=== PATIENT | female | born 1935 | race Caucasian/White ===

== ENCOUNTER 2018-03-28 08:05 | Inpatient (IN) ==
--- NOTE | 2018-03-28 08:08 | Emergency Department Note ---
Disposition Clinical Impression: Community acquired pneumonia, Sepsis Disposition: Admitted As Inpatient Condition: Fair Referrals: Dwayne Cho MD [Primary Care Provider] - Forms: ED Satisfaction Letter Time of Disposition: 10:26 SOB HPI - General Chief Complaint: ED Shortness of Breath/Dyspnea Stated Complaint: Shortness of Breath Time Seen by Provider: 03/28/18 08:05 Source: patient Mode of arrival: ambulatory Limitations: no limitations Nursing Notes Reviewed: Yes Vital Signs Reviewed: Yes - History of Present Illness Increasing shortness of breath over the past couple days cough congestion fever chills denies any aches thinks it may be she is in congestive heart failure she's never been diagnosed with COPD she's been bringing up yellow-green phlegm she denies any blurred vision double vision has dyspnea with activity she denies any recent weight gain or weight loss she denies any numbness tingling weakness or any syncope she denies any abdominal pain or discomfort nurse's notes have been reviewed with further review systems is she's had fever chills cough congestion runny nose phlegm production she's had increasing shortness of breath with activity she denies though did calf pain swelling edema noted rash lesions radiation up into the neck or to the jaw nausea vomiting or diarrhea all systems have been reviewed and are otherwise negative Pt Subjective Complaint: shortness of breath Onset (ago): day(s) Context: recent illness Severity: moderate Consistency/Duration: constant, gradually worsening Improves with: oxygen Worsens with: exertion, movement, coughing Known history of: congestive heart failure Associated symptoms: Reports: chest pain, pain with inspiration, fever, cough, wheezing, sputum production. Denies: orthopnea, lower extremity pain, polyuria, polydipsia, parasthesias, palpitations, hemoptysis, diaphoresis, nausea/vomiting, syncope, abdominal pain, rash, sense of impending doom Treatment prior to arrival: none Cough present: Yes Cough Description: Involuntary, Weak Cough Frequency: Intermittent Sputum production: Yes Sputum Amount: Small Sputum Color: Yellow, Green - Related Data Home Medications Medication Instructions Recorded Confirmed Dexlansoprazole [Dexilant] 60 mg PO DAILY 07/11/15 03/28/18 FLUoxetine HCl [Prozac] 40 mg PO DAILY 07/11/15 03/28/18 Gabapentin [Neurontin] 300 mg PO TID 07/11/15 03/28/18 Levothyroxine [Synthroid] 50 mcg PO 0630 07/11/15 03/28/18 Oxycodone HCl/Acetaminophen 1 each PO Q6H PRN 07/11/15 03/28/18 [Endocet 10-325 mg Tablet] Sucralfate [Carafate] 1 gm PO DAILY 07/11/15 03/28/18 metFORMIN [Glucophage] 500 mg PO DAILY 07/11/15 03/28/18 Atorvastatin [Lipitor] 80 mg PO HS 02/10/17 12/14/17 Clopidogrel [Plavix] 75 mg PO DAILY 02/10/17 03/28/18 Furosemide [Lasix] 40 mg PO DAILY 02/10/17 03/28/18 LORazepam [Ativan] 0.5 mg PO BID 02/10/17 03/28/18 Loratadine [Allergy Relief] 10 mg PO DAILY 12/14/17 03/28/18 Meclizine [Antivert] 12.5 mg PO BID 03/28/18 03/28/18 Metoprolol Succinate [Toprol Xl] 25 mg PO DAILY 03/28/18 03/28/18 Propranolol [Inderal] 20 mg PO DAILY 03/28/18 03/28/18 Spironolactone [Aldactone] 12.5 mg PO DAILY 03/28/18 03/28/18 Allergies Allergy/AdvReac Type Severity Reaction Status Date / Time Influenza Virus Vaccines Allergy Rash Verified 04/17/16 09:41 aspirin [ASA] AdvReac See Verified 04/17/16 09:19 Comments All systems ED: reviewed and negative except as stated. Review of Systems: As Per HPI Constitutional: Denies: fever, chills, weakness Eyes: Denies: eye pain, eye discharge ENT ED: Denies: ear pain, throat pain Cardiovascular: Denies: chest pain, palpitations, dyspnea on exertion Respiratory: Reports: cough, dyspnea, wheezes, sputum production Gastrointestinal: Denies: abdominal pain, nausea, vomiting Genitourinary: Denies: urgency, dysuria, frequency Musculoskeletal: Denies: back pain, neck pain Integumentary: Denies: abrasion Neurological: Denies: headache Psychiatric: Denies: anxiety Endocrine: Denies: fatigue Hematological/Lymphatic: Denies: easy bleeding Allergic/Immunologic: Denies: facial swelling Past Medical History - Past Medical History Attestation: Yes The following information was validated with the patient. Source: patient, old records reviewed, nursing notes reviewed Medical history: Reports: arthritis, asthma, COPD, coronary artery disease, myocardial infarction, thyroid disease, other Psychiatric history: Reports: anxiety, depression AIR TWISTER WINDER history: Reports: no AIR TWISTER WINDER history - Social History Smoking Status: Never smoker Smokeless Tobacco Status: No Alcohol use: Reports: none Drug use: Reports: none Physical Exam - General Limitations: no limitations General appearance: alert, in no apparent distress, anxious - Head Head exam: atraumatic, normocephalic, normal inspection - Eye Eye exam: Present: normal appearance, PERRL, EOMI - ENT ENT exam: normal exam, normal oropharynx, mucous membranes moist, TM's normal bilaterally, normal external ear exam, other (Heavy postnasal drip) - Neck Neck exam: Present: normal inspection, full ROM, trachea midline - Chest Chest inspection: Present: normal inspection, symmetric chest wall rise - Respiratory Respiratory exam: Present: respiratory distress (Mild), wheezes, prolonged expiratory phase - Cardiovascular Cardiovascular exam: Present: regular rate, normal rhythm, normal heart sounds - Abdominal Exam Abdominal exam: Present: soft, Non-Tender, normal bowel sounds. Absent: mass, pulsatile mass - Expanded Upper Extremity Exam Shoulder exam: Present: normal inspection, full ROM Arm exam: Present: normal inspection, full ROM Elbow exam: Present: normal inspection, full ROM Forearm/Wrist exam: Present: normal inspection, full ROM Hand exam: Present: normal inspection, full ROM Vascular exam: Normal: capillary refill, radial pulse - Expanded Lower Extremity Exam Hip/Pelvis exam: Present: normal inspection, full ROM Upper leg exam: Present: normal inspection, full ROM Knee exam: Present: normal inspection, full ROM Lower leg exam: Present: normal inspection, full ROM Ankle exam: Present: normal inspection, full ROM Foot/toe exam: Present: normal inspection, full ROM Neurovascular/Tendon exam: Present: normal capillary refill, normal fine/light touch. Absent: motor deficit, sensory deficit, tendon deficit Gait: observed and normal - Back Exam Back exam: Present: normal inspection, full ROM. Absent: tenderness, muscle spasm - Neurological Exam Neurological exam: Present: alert, oriented X3, CN II-XII intact, normal gait - Psychiatric Psychiatric exam: Present: normal affect, normal mood - Skin Skin exam: Present: warm, dry, intact, normal color Course Course Narrative: Patient seen and evaluated patient was immediately given an aerosol treatment 2 which actually did improve her respiratory rate and maintained her sats on 2 L to 3 L of oxygen at 92 percent up from the 80% she was when she presented here and worsen blood pressure has dropped a little bit less now meeting criteria for sepsis and patient was given fluid boluses based upon that which developed at approximately 10:00 as result of the patient was admitted services Dr. Zavala transferred to [facility] with underlying sepsis disorder patient though is not in septic shock at this time Vital Signs Temperature 99.9 F H 03/28/18 08:06 Pulse Rate 109 03/28/18 08:06 Respiratory Rate 36 03/28/18 08:06 Blood Pressure 163/100 03/28/18 08:06 O2 Sat by Pulse Oximetry 77 03/28/18 08:06 Temperature 99.9 F H 03/28/18 08:06 Pulse Rate 87 03/28/18 09:59 Respiratory Rate 18 03/28/18 09:59 Blood Pressure 98/64 03/28/18 09:59 O2 Sat by Pulse Oximetry 92 03/28/18 09:59 Oxygen Delivery Oxygen Delivery Room Air Shortness of Breath/Dyspnea - Differential Diagnosis Likely: congestive heart failure, pneumonia - Medical Records Medical records reviewed: Yes I reviewed the patient's medical records. - Lab Data Lab results reviewed: Yes I reviewed the patient's lab results. Result diagrams: 03/28/18 08:23 03/28/18 08:23 Lab Results 03/28/18 03/28/18 03/28/18 Range/Units 08:23 08:23 08:23 WBC 14.4 H (4.3-11.1) K/mcL RBC 5.14 H (3.82-4.97) M/mcL Hgb 15.5 H (11.5-15.4) g/dL Hct 48.8 H (35.3-44.9) % MCV 94.9 (83.0-100.0) fL MCH 30.2 (28.0-33.3) pg MCHC 31.8 (31.6-35.5) g/dL RDW 13.4 (11.5-14.5) % Plt Count 197 (140-400) K/mcL MPV 11.2 (9.4-12.4) fL Immature Gran % 0.3 (0-4) % Seg Neutrophils % 87.9 % Lymphocytes % 7.8 % Monocytes % 3.1 % Eosinophils % 0.6 % Basophils % 0.3 % Neutrophils # 12.7 H (1.6-8.9) K/mcL Lymphocytes # 1.1 (0.6-4.6) K/mcL Monocytes # 0.5 (0.0-1.3) K/mcL Eosinophils # 0.1 (0.0-0.6) K/mcL Basophils # 0.0 (0.0-0.2) K/mcL PT 10.5 (9.4-12.1) Seconds INR 0.9 APTT 32.1 (26.0-36.0) Seconds Sodium 135 L (136-145) mEq/L Potassium 4.2 (3.5-5.1) mEq/L Chloride 94 L (98-107) mEq/L Carbon Dioxide 33 H (23-29) mEq/L BUN 23 (8-23) mg/dL Creatinine 0.90 (0.60-1.20) mg/dL Est GFR ( Amer) > 60 (> 60) Est GFR (Non-Af Amer) 60 (> 60) BUN/Creatinine Ratio 26 (6-26) Glucose 200 H (70-105) mg/dL Calculated Osmolality 289 (280-300) Lactic Acid (0.5-2.2) mmol/L Calcium 9.2 (8.6-10.3) mg/dL Total Bilirubin 0.6 (0.3-1.0) mg/dL AST 23 (13-39) Units/L ALT 19 (7-52) Units/L Alkaline Phosphatase 62 (34-104) Units/L Troponin I < 0.03 (< 0.04) ng/mL B-Natriuretic Peptide (Less than 100) pg/mL Serum Total Protein 6.8 (6.4-8.9) g/dL Albumin 4.0 (3.5-5.7) g/dL Globulin 2.8 (2.4-3.5) g/dL Albumin/Globulin Ratio 1.4 (1.1-2.2) 03/28/18 03/28/18 Range/Units 08:23 08:40 WBC (4.3-11.1) K/mcL RBC (3.82-4.97) M/mcL Hgb (11.5-15.4) g/dL Hct (35.3-44.9) % MCV (83.0-100.0) fL MCH (28.0-33.3) pg MCHC (31.6-35.5) g/dL RDW (11.5-14.5) % Plt Count (140-400) K/mcL MPV (9.4-12.4) fL Immature Gran % (0-4) % Seg Neutrophils % % Lymphocytes % % Monocytes % % Eosinophils % % Basophils % % Neutrophils # (1.6-8.9) K/mcL Lymphocytes # (0.6-4.6) K/mcL Monocytes # (0.0-1.3) K/mcL Eosinophils # (0.0-0.6) K/mcL Basophils # (0.0-0.2) K/mcL PT (9.4-12.1) Seconds INR APTT (26.0-36.0) Seconds Sodium (136-145) mEq/L Potassium (3.5-5.1) mEq/L Chloride (98-107) mEq/L Carbon Dioxide (23-29) mEq/L BUN (8-23) mg/dL Creatinine (0.60-1.20) mg/dL Est GFR ( Amer) (> 60) Est GFR (Non-Af Amer) (> 60) BUN/Creatinine Ratio (6-26) Glucose (70-105) mg/dL Calculated Osmolality (280-300) Lactic Acid 2.2 (0.5-2.2) mmol/L Calcium (8.6-10.3) mg/dL Total Bilirubin (0.3-1.0) mg/dL AST (13-39) Units/L ALT (7-52) Units/L Alkaline Phosphatase (34-104) Units/L Troponin I (< 0.04) ng/mL B-Natriuretic Peptide 328 H (Less than 100) pg/mL Serum Total Protein (6.4-8.9) g/dL Albumin (3.5-5.7) g/dL Globulin (2.4-3.5) g/dL Albumin/Globulin Ratio (1.1-2.2) - Radiology Data Radiology results reviewed: Yes I reviewed the patient's radiology results. ITS Impressions Chest X-Ray 03/28/18 08:09 IMPRESSION: Mild pulmonary edema. Possible superimposed left lung consolidation. Chronic elevation of the left hemidiaphragm. D/ / 03/28/2018 08:28:06 Williams Emanuel MD / melony Interpreting Provider: Williams Emanuel MD Chest CT 03/28/18 09:05 IMPRESSION: 1. Left pneumonia. Recommend chest radiograph in 8 weeks to confirm resolution. 2. Mediastinal adenopathy, likely reactive. 3. Trace left pleural effusion. D/ / Glenn Sheppard MD / Glenn Sheppard MD Interpreting Provider: Glenn Sheppard MD - EKG Data EKG attestation: Yes I reviewed and interpreted this EKG. EKG results narrative: Sinus tach rate of 108 VA 153 curious 114 QT 313 axis -33 Critical Care Time Critical Care Time: Yes Total Critical Care Time: 35 Attestation: 35 minutes high probability clinically significant life-threatening deterioration of patient's condition exclusive of separately billable procedures result patient being hypoxic pneumonia meeting sepsis criteria Sepsis Event Note - Evaluation Sepsis Screen: Sepsis Risk Current Stage of Suspected Sepsis: sepsis Possible Source of Sepsis: pulmonary - Focused Exam Date of Encounter: 03/28/18 Time of Encounter: 10:00 Vital Signs: Vital Signs Temp Pulse Resp BP Pulse Ox 03/28/18 09:59 87 18 98/64 92 03/28/18 08:48 96 18 114/72 93 03/28/18 08:15 30 93 03/28/18 08:06 99.9 F H 109 36 163/100 77 Respiratory Exam: Present: wheezes, rhonchi, decreased breath sounds, prolonged expiratory phas, distant breath sounds Cardiovascular Exam: Present: tachycardia Capillary Refill: < 2 seconds Peripheral Pulse Strength: 3+ normal Peripheral Pulse Location: Radial Skin Exam: normal turgor - Bedside Monitoring Bedside Ultrasound Performed: No Passive Leg raise/fluid bolus: not performed
[2018-03-28] MEDS ORDERED: Bumetanide 1 MG/4 ML VIAL IVP ONE (08:09)
[2018-03-28] MEDS ORDERED: Ipratropium/Albuterol Neb 3 ML ONE (08:09)
[2018-03-28] MEDS ORDERED: 0.9 % Sodium Chloride 1,000 ML IVC SCH ×2 (08:15→11:16)
[2018-03-28] MEDS: Ipratropium/Albuterol Neb 3 ML IH ONE ×2 (08:15→08:37)
[2018-03-28 08:33] LABS: Basophils % 0.3 %; Eosinophils # 0.1 K/mcL (0.0-0.6); Eosinophils % 0.6 %; Hematocrit 48.8 % (35.3-44.9); Hemoglobin 15.5 g/dL (11.5-15.4); Immature Granulocytes % 0.3 % (0-4); Lymphocytes # 1.1 K/mcL (0.6-4.6); Lymphocytes % 7.8 %; Mean Corpuscular HGB Conc 31.8 g/dL (31.6-35.5); Mean Corpuscular Hemoglobin 30.2 pg (28.0-33.3); Mean Corpuscular Volume 94.9 fL (83.0-100.0); Mean Platelet Volume 11.2 fL (9.4-12.4); Monocytes % 3.1 %; Neutrophils # 12.7 K/mcL (1.6-8.9); Platelet Count 197 K/mcL (140-400); Red Blood Count 5.14 M/mcL (3.82-4.97); Red Cell Distribution Width 13.4 % (11.5-14.5); Segmented Neutrophils % 87.9 %
[2018-03-28 08:40] LABS: Monocytes # 0.5 K/mcL (0.0-1.3)
[2018-03-28 08:45] LABS: INR 0.9; Prothrombin Time 10.5 Seconds (9.4-12.1)
[2018-03-28 08:47] LABS: Activated Partial Thrombo Time 32.1 Seconds (26.0-36.0)
[2018-03-28 08:56] LABS: Troponin I < 0.03 ng/mL (< 0.04)
[2018-03-28] MEDS ORDERED: Azithromycin 500 MG in D5% in Water 250 ML IVPB ONE (09:05)
[2018-03-28 09:27] LABS: Alanine Aminotransferase 19 Units/L (7-52); Albumin/Globulin Ratio 1.4 (1.1-2.2); Alkaline Phosphatase 62 Units/L (34-104); Aspartate Amino Transferase 23 Units/L (13-39); BUN/Creatinine Ratio 26 (6-26); Bilirubin,Total 0.6 mg/dL (0.3-1.0); Blood Urea Nitrogen 23 mg/dL (8-23); Calcium 9.2 mg/dL (8.6-10.3); Carbon Dioxide 33 mEq/L (23-29); Chloride 94 mEq/L (98-107); Globulin 2.8 g/dL (2.4-3.5); Glucose 200 mg/dL (70-105); Osmolality,Calculated 289 (280-300); Potassium 4.2 mEq/L (3.5-5.1); Sodium 135 mEq/L (136-145); Total Protein 6.8 g/dL (6.4-8.9); eGFR For Non-African Americans 60 (> 60)
[2018-03-28] MEDS ORDERED: *HR* Dextrose 50 % in Water (Syg) 50 ML SYRINGE IVP PRN (11:16)
[2018-03-28] MEDS ORDERED: D5% in Water 1,000 ML IVC PRN (11:16)
[2018-03-28] MEDS ORDERED: Naloxone 0.4 MG/ML INJ IVP PRN (11:16)
[2018-03-28] MEDS ORDERED: Dextrose Gel 15 GM/37.5 ML TUBE PO PRN ×2 (11:16)
[2018-03-28] MEDS: Insulin LISPRO 300 UNITS/3 ML VIAL SQ SCH ×2 (12:46→17:31)
--- NOTE | 2018-03-28 14:35 | Internal Med History&Physical ---
Date of Encounter: 03/28/18 Time of Encounter: 14:10 Assessment and Plan (1) Community acquired pneumonia Current visit: Yes Status: Acute She was given Rocephin and Zithromax in emergency room. These will be continued with lactobacillus. Qualifiers: Laterality: left Lung location: unspecified part of lung Qualified Code(s): J18.9 - Pneumonia, unspecified organism (2) Sepsis Current visit: Yes Status: Acute Presumable source pneumonia. Start antibiotics and probiotic as above. IV fluids will be given. Repeat lactic acid level has normalized. Qualifiers: Sepsis type: sepsis due to unspecified organism Qualified Code(s): A41.9 - Sepsis, unspecified organism (3) DM type 2 (diabetes mellitus, type 2) Current visit: No Status: Chronic Continue Glucophage. Do Accu-Cheks with SSI. Qualifiers: Diabetes mellitus mcc insulin use: without mcc use Diabetes mellitus complication status: with unspecified complications Qualified Code(s): E11.8 - Type 2 diabetes mellitus with unspecified complications (4) Hypothyroidism Current visit: Yes Status: Acute Check TSH in a.m. Qualifiers: Hypothyroidism type: unspecified Qualified Code(s): E03.9 - Hypothyroidism, unspecified (5) Restless leg syndrome Current visit: Yes Status: Acute Continue gabapentin. Check ferritin level. Internal Medicine - H&P: HPI Chief complaint: Cough and dyspnea Admitted From: Emergency Dept Plans for Post Hospital Care: Home History of present illness: Ms. Ye is a 83 year old female who came to emergency room stating she had developed increasing cough and dyspnea over the last 3 days. She states the cough was productive of yellow sputum. She denies hemoptysis, fevers or chills. When she did not improve she came to emergency room and was evaluated. She was found to have leukocytosis with left shift and left lung pneumonia on chest CT. She was admitted to [facility] floor for ongoing care needs. Her respiratory history significant for being a lifelong nonsmoker. She claims she had PFTs many years ago and was diagnosed with asthma and COPD. She does not use home oxygen and has not been tested for sleep apnea.. Past Med Surg Social Fam HX - Past Medical History Medical history: arthritis, asthma, COPD, coronary artery disease, myocardial infarction, thyroid disease, other Additional medical history: GENERALIZED ARTHRITIS PAIN (CHRONIC PAIN) Psychiatric history: anxiety, depression - Past Surgical History Additional surgical history: Esophagus stretched. cardiac stents - Social History Smoking Status: Never smoker Smokeless Tobacco Status: No Alcohol use: none Drug use: none - Family History Brother Hx Family Respiratory Disorders: Yes (TB) Internal Medicine - H&P: Meds Dexlansoprazole [Dexilant] 60 mg PO DAILY 07/11/15 [History] FLUoxetine HCl [Prozac] 40 mg PO DAILY 07/11/15 [History] Gabapentin [Neurontin] 300 mg PO TID 07/11/15 [History] Levothyroxine [Synthroid] 50 mcg PO 0630 07/11/15 [History] Oxycodone HCl/Acetaminophen [Endocet 10-325 mg Tablet] 1 each PO Q6H PRN 07/11/15 [History] Sucralfate [Carafate] 1 gm PO DAILY 07/11/15 [History] metFORMIN [Glucophage] 500 mg PO DAILY 07/11/15 [History] Atorvastatin [Lipitor] 80 mg PO HS 02/10/17 [History] Clopidogrel [Plavix] 75 mg PO DAILY 02/10/17 [History] Furosemide [Lasix] 40 mg PO DAILY 02/10/17 [History] LORazepam [Ativan] 0.5 mg PO BID 02/10/17 [History] Loratadine [Allergy Relief] 10 mg PO DAILY 12/14/17 [History] Meclizine [Antivert] 12.5 mg PO BID 03/28/18 [History] Metoprolol Succinate [Toprol Xl] 25 mg PO DAILY 03/28/18 [History] Propranolol [Inderal] 20 mg PO DAILY 03/28/18 [History] Spironolactone [Aldactone] 12.5 mg PO DAILY 03/28/18 [History] Allergy/AdvReac Type Severity Reaction Status Date / Time Influenza Virus Vaccines Allergy Rash Verified 04/17/16 09:41 aspirin [ASA] AdvReac See Verified 04/17/16 09:19 Comments All Systems PM: A 10-system review of systems was performed and is negative for pertinent findings except as documented above in the HPI. Review of systems: Review of systems from her February 2017 [facility] WITH [facility] hospitalization were reviewed and revised as below. Gen.: Her weight has increased from 70.052 kilograms on 02/12/2017 to 73.028 kilograms at present. Cardiovascular: She reports having an UT April 2016 and had 5 stents placed at [facility] with initiation of aspirin and Plavix. She denies hypertension heart failure DVT or pulmonary embolus. Respiratory: As per history of present illness GI: She has had cholecystectomy. She has GERD. 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 She has chronically elevated left hemidiaphragm. She has no known disorders of her liver or exocrine pancreas. : She denies hematuria dysuria or kidney stones Neurologic: She has restless leg syndrome. She denies large distribution strokes or seizures Endocrine: She was diagnosed with DM 2 approximately 2002. Hemoglobin A1c was 6.2% on 11/28/2017. She takes metformin at home. She has hypothyroidism. She denies hyperlipidemia Hematology/oncology: She had microcytic anemia in the past which resolved. She had cervical cancer many years ago with curative hysterectomy. She denies other internal malignancies Psychiatric: She has depression but denies anxiety or other mental health issues Musk skeletal: She has DJD but denies gout or other bone joint or muscle disorders. - Constitutional Vitals: Temp Pulse Resp BP Pulse Ox 98.7 F 83 18 82/52 94 03/28/18 11:11 03/28/18 11:11 03/28/18 11:11 03/28/18 11:11 03/28/18 11:11 Exam: Gen.: She is a well-developed well-nourished female resting comfortably in bed who appears in no acute distress HEENT: Head is atraumatic and normocephalic. Eyes: EOMI. There is no scleral icterus. Mouth: Mucosa is moist. Neck: Supple and nontender. There is no thyromegaly or adenopathy noted. Heart: Regular without murmurs gallops or ectopics Lungs: No wheezes or crackles are heard. Abdomen: Soft and nontender. No masses or guarding are noted. Extremities: There is no cyanosis edema or clubbing noted. Dorsalis pedis and posttibial pulses are trace palpable bilaterally. Neurologic: Mental status: She is talkative and a good historian. Cranial nerves: Smile is symmetric. Forehead wrinkles bilaterally. Tongue protrudes midline. EOMI. Motor: There is no pronator drift. She has occasional involuntary jerking of her arms and legs. Cerebellar: Finger to nose is intact bilaterally. Skin: Warm and dry Internal Med - H&P Results - Labs CBC & Chem 7: 03/28/18 08:23 03/28/18 08:23 Labs: Short CBC 03/28/18 Range/Units 08:23 WBC 14.4 H (4.3-11.1) K/mcL Hgb 15.5 H (11.5-15.4) g/dL Hct 48.8 H (35.3-44.9) % Plt Count 197 (140-400) K/mcL Neutrophils # 12.7 H (1.6-8.9) K/mcL BMP 03/28/18 08:23 Sodium 135 L Potassium 4.2 Chloride 94 L Carbon Dioxide 33 H BUN 23 Creatinine 0.90 Glucose 200 H Calcium 9.2 Cardiac Enzymes 03/28/18 Range/Units 08:23 Troponin I < 0.03 (< 0.04) ng/mL Liver Function 03/28/18 Range/Units 08:23 Total Bilirubin 0.6 (0.3-1.0) mg/dL AST 23 (13-39) Units/L ALT 19 (7-52) Units/L Alkaline Phosphatase 62 (34-104) Units/L Albumin 4.0 (3.5-5.7) g/dL - Impressions ITS Impressions Chest X-Ray 03/28/18 08:09 IMPRESSION: Mild pulmonary edema. Possible superimposed left lung consolidation. Chronic elevation of the left hemidiaphragm. D/ / 03/28/2018 08:28:06 Williams Emanuel MD / [facility] Interpreting Provider: Williams Emanuel MD Chest CT 03/28/18 09:05 IMPRESSION: 1. Left pneumonia. Recommend chest radiograph in 8 weeks to confirm resolution. 2. Mediastinal adenopathy, likely reactive. 3. Trace left pleural effusion. D/ / Glenn Sheppard MD / Glenn Sheppard MD Interpreting Provider: Glenn Sheppard MD
[2018-03-28] MEDS: *HR* OxyCODONE/APAP 10/325 TABLET PO PRN (15:19)
[2018-03-28] MEDS: Gabapentin 300 MG CAPSULE PO SCH (15:19)
[2018-03-28] MEDS ORDERED: 0.9 % Sodium Chloride 500 ML IVC ONE (21:41)
[2018-03-28] MEDS: Lactobacillus 1 EACH CAP.SPRINK PO SCH (21:51)
[2018-03-28] MEDS: Mag Hydrox/Al Hydrox/Simeth 30 ML UDC PO PRN (21:52)
[2018-03-29] MEDS ORDERED: 0.9 % Sodium Chloride 500 ML IVC ONE (00:13)
[2018-03-29] MEDS: Gabapentin 300 MG CAPSULE PO SCH ×4 (01:36→20:27)
[2018-03-29] MEDS: *HR* OxyCODONE/APAP 10/325 TABLET PO PRN ×4 (01:36→20:27)
[2018-03-29] MEDS: *HR* LORazepam 0.5 MG TABLET PO SCH ×3 (01:36→20:27)
[2018-03-29] MEDS ORDERED: 0.9 % Sodium Chloride 250 ML IVC ONE (04:01)
[2018-03-29 05:02] LABS: Calcium 7.3 mg/dL (8.6-10.3); Magnesium 1.7 mg/dL (1.6-2.6); Potassium 4.1 mEq/L (3.5-5.1)
[2018-03-29] MEDS: *HR* Enoxaparin 40 MG/0.4 ML SYRINGE SQ SCH (06:16)
[2018-03-29] MEDS: Levothyroxine 25 MCG TABLET PO SCH (06:16)
[2018-03-29] MEDS: Insulin LISPRO 300 UNITS/3 ML VIAL SQ SCH ×3 (08:15→16:33)
[2018-03-29] MEDS: cefTRIAXone 1,000 MG in Water for inj. (sterile) 20 ML 10 ML IVP SCH (08:27)
[2018-03-29] MEDS: Lactobacillus 1 EACH CAP.SPRINK PO SCH ×2 (08:28→20:27)
[2018-03-29] MEDS: FLUoxetine 20 MG CAPSULE PO SCH (08:28)
[2018-03-29] MEDS: Sucralfate 1 GM TABLET PO SCH (08:28)
[2018-03-29] MEDS: *HR* Metformin 500 MG TABLET PO SCH (08:28)
[2018-03-29] MEDS: Azithromycin 500 MG in D5% in Water 250 ML IVPB SCH (08:42)
[2018-03-29] MEDS ORDERED: Loratadine 10 MG TABLET PO SCH (09:00)
[2018-03-29] MEDS ORDERED: Furosemide 40 MG TABLET PO SCH (09:00)
[2018-03-29] MEDS ORDERED: Spironolactone 25 MG TABLET PO SCH (09:00)
[2018-03-29] MEDS ORDERED: Metoprolol XL (24 HR) Succ 25 MG TAB.ER.24H PO SCH (09:00)
--- NOTE | 2018-03-29 09:16 | Electrocardiograph Report ---
[address] [place], [place] [address] Test Date: 2018-03-28 Pat Name: Marlyn Ye Department: [id number] Room: [facility] Gender: F Sales Specialist: Scotty : 1935 Requested By: Alejandrina Cho Order Number: [id number] Reading MD: Juan Edmonds Measurements Intervals [place] Rate: 108 P: 60 MI: 153 QRS: -33 QRSD: 114 T: 64 QT: 313 QTc: 376 Interpretive Statements PROBABLE SINUS TACHYCARDIA POSSIBLE LEFT ATRIAL ENLARGEMENT MARKED LEFT AXIS DEVIATION SIGNIFICANT BASELINE ARTIFACT Electronically Signed On 03-29-2018 9:15:03 EST by Juan Edmonds
--- NOTE | 2018-03-29 09:43 | Internal Med Progress Note ---
Date of Encounter: 03/29/18 Time of Encounter: 09:35 - Assessment and plan (1) Community acquired pneumonia Current Visit: Yes Status: Acute Assessment and plan: March 29. Continue Rocephin and Zithromax with lactobacillus. Qualifiers: Laterality: left Lung location: unspecified part of lung Qualified Code(s): J18.9 - Pneumonia, unspecified organism (2) Sepsis Current Visit: Yes Status: Acute Assessment and plan: March 29. As above Qualifiers: Sepsis type: sepsis due to unspecified organism Qualified Code(s): A41.9 - Sepsis, unspecified organism (3) DM type 2 (diabetes mellitus, type 2) Current Visit: No Status: Chronic Assessment and plan: March 29. Continue Glucophage. Hemoglobin A1c pending. Continue Accu-Cheks with SSI. Qualifiers: Diabetes mellitus director data architecture insulin use: without director data architecture use Diabetes mellitus complication status: with unspecified complications Qualified Code(s): E11.8 - Type 2 diabetes mellitus with unspecified complications (4) Hypothyroidism Current Visit: Yes Status: Acute Assessment and plan: March 29. Check TSH in a.m. Qualifiers: Hypothyroidism type: unspecified Qualified Code(s): E03.9 - Hypothyroidism, unspecified (5) Restless leg syndrome Current Visit: Yes Status: Acute Assessment and plan: March 29. Continue gabapentin. Ferritin level normal at 48. (6) Elevated brain natriuretic peptide (BNP) level Current Visit: Yes Status: Acute Assessment and plan: March 29. Lasix, metoprolol, spironolactone, and propranolol will be held due to hypotension.. - Subjective Interval history: March 29. She has no new complaints. - Constitutional Vitals: Temp Pulse Resp BP Pulse Ox 98.1 F 64 15 95/53 98 03/29/18 07:12 03/29/18 07:12 03/29/18 07:12 03/29/18 07:12 03/29/18 07:12 Exam: She is resting comfortably in bed and appears in no acute distress. Her lungs show no wheezes or crackles. Heart is regular without murmurs gallops or ectopics. I reviewed her medications and lab results. Internal Medicine: Result - Labs CBC & Chem 7: 03/28/18 08:23 03/29/18 04:35 Labs: BMP 03/29/18 04:35 Sodium 132 L Potassium 4.1 Chloride 99 Carbon Dioxide 26 BUN 33 H Creatinine 1.12 Glucose 119 H Calcium 7.3 L - ABG Interpretation ABG results: PT/INR, D-dimer PT 10.5 Seconds (9.4-12.1) 03/28/18 08:23 - Impressions Impressions Chest CT 03/28/18 09:05 IMPRESSION: 1. Left pneumonia. Recommend chest radiograph in 8 weeks to confirm resolution. 2. Mediastinal adenopathy, likely reactive. 3. Trace left pleural effusion. D/ / Glenn Sheppard MD / Glenn Sheppard MD Interpreting Provider: Glenn Sheppard MD Consult Discharge Plan - Plan Referrals: Dwayne Cho MD [Primary Care Provider] - 1 week
[2018-03-29 10:23] LABS: Estimated Average Glucose 128 mg/dl; Hemoglobin A1C 6.1 %
[2018-03-29] MEDS: Albuterol 2.5 MG/3 ML NEBULIZER IH PRN (20:53)
[2018-03-29] MEDS: Mag Hydrox/Al Hydrox/Simeth 30 ML UDC PO PRN (22:21)
[2018-03-30] MEDS: *HR* OxyCODONE/APAP 10/325 TABLET PO PRN ×4 (02:27→20:35)
[2018-03-30] MEDS: Albuterol 2.5 MG/3 ML NEBULIZER IH PRN ×3 (02:50→12:29)
[2018-03-30] MEDS: Levothyroxine 25 MCG TABLET PO SCH (06:04)
[2018-03-30] MEDS: *HR* Enoxaparin 40 MG/0.4 ML SYRINGE SQ SCH (06:04)
[2018-03-30 06:35] LABS: Basophils % 0.2 %; Eosinophils # 0.1 K/mcL (0.0-0.6); Eosinophils % 0.8 %; Hematocrit 35.9 % (35.3-44.9); Hemoglobin 11.3 g/dL (11.5-15.4); Immature Granulocytes % 0.4 % (0-4); Lymphocytes # 0.8 K/mcL (0.6-4.6); Mean Corpuscular HGB Conc 31.5 g/dL (31.6-35.5); Mean Corpuscular Hemoglobin 30.3 pg (28.0-33.3); Mean Corpuscular Volume 96.2 fL (83.0-100.0); Mean Platelet Volume 11.7 fL (9.4-12.4); Monocytes # 0.7 K/mcL (0.0-1.3); Monocytes % 7.9 %; Neutrophils # 6.8 K/mcL (1.6-8.9); Platelet Count 136 K/mcL (140-400); Red Blood Count 3.73 M/mcL (3.82-4.97); Red Cell Distribution Width 13.5 % (11.5-14.5); Segmented Neutrophils % 81.7 %
[2018-03-30 06:55] LABS: Alanine Aminotransferase 22 Units/L (7-52); Albumin 3.2 g/dL (3.5-5.7); Albumin/Globulin Ratio 1.3 (1.1-2.2); Alkaline Phosphatase 43 Units/L (34-104); Aspartate Amino Transferase 23 Units/L (13-39); BUN/Creatinine Ratio 22 (6-26); Bilirubin,Total 0.4 mg/dL (0.3-1.0); Blood Urea Nitrogen 14 mg/dL (8-23); Calcium 8.5 mg/dL (8.6-10.3); Carbon Dioxide 28 mEq/L (23-29); Chloride 100 mEq/L (98-107); Globulin 2.5 g/dL (2.4-3.5); Glucose 123 mg/dL (70-105); Osmolality,Calculated 282 (280-300); Potassium 4.3 mEq/L (3.5-5.1); Sodium 135 mEq/L (136-145); Total Protein 5.7 g/dL (6.4-8.9); eGFR For Non-African Americans > 60 (> 60)
[2018-03-30 07:08] LABS: Thyroid Stimulating Hormone 1.675 mcIU/mL (0.340-5.600)
[2018-03-30] MEDS: 0.9 % Sodium Chloride 1,000 ML IVC SCH ×7 (07:35→14:24)
[2018-03-30] MEDS: Sucralfate 1 GM TABLET PO SCH (08:26)
[2018-03-30] MEDS: *HR* Metformin 500 MG TABLET PO SCH (08:27)
[2018-03-30] MEDS: Gabapentin 300 MG CAPSULE PO SCH ×3 (08:27→20:36)
[2018-03-30] MEDS: FLUoxetine 20 MG CAPSULE PO SCH (08:27)
[2018-03-30] MEDS: Insulin LISPRO 300 UNITS/3 ML VIAL SQ SCH ×3 (08:28→16:29)
[2018-03-30] MEDS: Lactobacillus 1 EACH CAP.SPRINK PO SCH ×2 (08:49→20:36)
[2018-03-30] MEDS: cefTRIAXone 1,000 MG in Water for inj. (sterile) 20 ML 10 ML IVP SCH (08:50)
[2018-03-30] MEDS: Azithromycin 500 MG in D5% in Water 250 ML IVPB SCH (08:54)
[2018-03-30] MEDS: *HR* LORazepam 0.5 MG TABLET PO SCH ×2 (09:02→20:35)
--- NOTE | 2018-03-30 09:14 | Internal Med Progress Note ---
Date of Encounter: 03/30/18 Time of Encounter: 09:07 - Assessment and plan (1) Community acquired pneumonia Current Visit: Yes Status: Acute Assessment and plan: March 29. Continue Rocephin and Zithromax with lactobacillus. March 30. WBC has normalized at left shift still present. Continue Rocephin, Zithromax, and lactobacillus. Qualifiers: Laterality: left Lung location: unspecified part of lung Qualified Code(s): J18.9 - Pneumonia, unspecified organism (2) Sepsis Current Visit: Yes Status: Acute Assessment and plan: March 29. As above Qualifiers: Sepsis type: sepsis due to unspecified organism Qualified Code(s): A41.9 - Sepsis, unspecified organism (3) DM type 2 (diabetes mellitus, type 2) Current Visit: No Status: Chronic Assessment and plan: March 29. Continue Glucophage. Hemoglobin A1c pending. Continue Accu-Cheks with SSI. March 30. Hemoglobin A1c 6.1%. Continue Glucophage and Accu-Cheks with SSI. Qualifiers: Diabetes mellitus longterm insulin use: without manager intermediate use Diabetes mellitus complication status: with unspecified complications Qualified Code(s): E11.8 - Type 2 diabetes mellitus with unspecified complications (4) Hypothyroidism Current Visit: Yes Status: Acute Assessment and plan: March 29. Check TSH in a.m. March 30. TSH normal at 1.675. Continue present dose Synthroid. Qualifiers: Hypothyroidism type: unspecified Qualified Code(s): E03.9 - Hypothyroidism, unspecified (5) Restless leg syndrome Current Visit: Yes Status: Acute Assessment and plan: March 29. Continue gabapentin. Ferritin level normal at 48. (6) Elevated brain natriuretic peptide (BNP) level Current Visit: Yes Status: Acute Assessment and plan: March 29. Lasix, metoprolol, spironolactone, and propranolol will be held due to hypotension.. March 30. BN peptide has risen to 668. Discontinue IV fluids and restart Lasix - Subjective Interval history: March 29. She has no new complaints. March 30. She has no new complaints. She states her breathing has improved but she does not feel back to her baseline yet. - Constitutional Vitals: Temp Pulse Resp BP Pulse Ox 97.8 F 87 16 112/61 92 03/30/18 07:06 03/30/18 07:06 03/30/18 08:45 03/30/18 07:06 03/30/18 08:45 Exam: She is resting comfortably in bed and appears in no acute distress. Her affect is bright and cheerful. Lungs show no wheezes or crackles. I reviewed her medications and lab results. Internal Medicine: Result - Labs CBC & Chem 7: 03/30/18 06:04 03/30/18 06:04 Labs: Short CBC 03/30/18 Range/Units 06:04 WBC 8.3 (4.3-11.1) K/mcL Hgb 11.3 L D (11.5-15.4) g/dL Hct 35.9 (35.3-44.9) % Plt Count 136 L (140-400) K/mcL Neutrophils # 6.8 (1.6-8.9) K/mcL BMP 03/30/18 06:04 Sodium 135 L Potassium 4.3 Chloride 100 Carbon Dioxide 28 BUN 14 Creatinine 0.64 Glucose 123 H Calcium 8.5 L Liver Function 03/30/18 Range/Units 06:04 Total Bilirubin 0.4 (0.3-1.0) mg/dL AST 23 (13-39) Units/L ALT 22 (7-52) Units/L Alkaline Phosphatase 43 (34-104) Units/L Albumin 3.2 L (3.5-5.7) g/dL - ABG Interpretation ABG results: PT/INR, D-dimer PT 10.5 Seconds (9.4-12.1) 03/28/18 08:23 Consult Discharge Plan - Plan Referrals: Dwayne Cho MD [Primary Care Provider] - 1 week
[2018-03-30] MEDS: Furosemide 40 MG TABLET PO SCH (10:14)
[2018-03-31] MEDS: *HR* OxyCODONE/APAP 10/325 TABLET PO PRN ×2 (02:30→09:01)
[2018-03-31] MEDS: Albuterol 2.5 MG/3 ML NEBULIZER IH PRN ×2 (03:06→08:35)
[2018-03-31] MEDS: *HR* Enoxaparin 40 MG/0.4 ML SYRINGE SQ SCH (06:42)
[2018-03-31] MEDS: Levothyroxine 25 MCG TABLET PO SCH (06:43)
[2018-03-31 07:26] VITALS: BP 97/59
[2018-03-31] MEDS: Furosemide 40 MG TABLET PO SCH (08:54)
[2018-03-31] MEDS: FLUoxetine 20 MG CAPSULE PO SCH (08:55)
[2018-03-31] MEDS: Gabapentin 300 MG CAPSULE PO SCH (08:55)
[2018-03-31] MEDS: Sucralfate 1 GM TABLET PO SCH (08:55)
[2018-03-31] MEDS: *HR* Metformin 500 MG TABLET PO SCH (08:55)
[2018-03-31] MEDS: *HR* LORazepam 0.5 MG TABLET PO SCH (08:55)
[2018-03-31] MEDS: Lactobacillus 1 EACH CAP.SPRINK PO SCH (08:55)
[2018-03-31] MEDS: Azithromycin 500 MG in D5% in Water 250 ML IVPB SCH (08:56)
[2018-03-31] MEDS: cefTRIAXone 1,000 MG in Water for inj. (sterile) 20 ML 10 ML IVP SCH (08:58)
[2018-03-31] MEDS: Insulin LISPRO 300 UNITS/3 ML VIAL SQ SCH (09:02)
--- NOTE | 2018-03-31 09:45 | Discharge Summary ---
Orders not resulted at time of discharge: Pending orders 03/28/18 08:20 Culture,Blood [] Stat Date of Encounter: 03/31/18 Time of Encounter: 09:30 - Discharge Diagnosis (1) Community acquired pneumonia Priority: Primary Status: Acute Qualifiers: Laterality: left Lung location: unspecified part of lung Qualified Code(s): J18.9 - Pneumonia, unspecified organism (2) Sepsis Priority: Secondary Status: Acute Qualifiers: Sepsis type: sepsis due to unspecified organism Qualified Code(s): A41.9 - Sepsis, unspecified organism (3) DM type 2 (diabetes mellitus, type 2) Priority: Secondary Status: Chronic Qualifiers: Diabetes mellitus jail insulin use: without watermaster use Diabetes mellitus complication status: with unspecified complications Qualified Code(s): E11.8 - Type 2 diabetes mellitus with unspecified complications (4) Hypothyroidism Priority: Secondary Status: Acute Qualifiers: Hypothyroidism type: unspecified Qualified Code(s): E03.9 - Hypothyroidism, unspecified (5) Restless leg syndrome Priority: Secondary Status: Acute (6) Elevated brain natriuretic peptide (BNP) level Priority: Secondary Status: Acute Hospital course: Ms. Ye is a 83 year old female who came to emergency room stating she had developed increasing cough and dyspnea over the last 3 days. She states the cough was productive of yellow sputum. She denies hemoptysis, fevers or chills. When she did not improve she came to emergency room and was evaluated. She was found to have leukocytosis with left shift and left lung pneumonia on chest CT. She was admitted to [facility] floor for ongoing care needs. Initial orders were written by the emergency room physician. I saw her on March 28 and performed a history and physical. She was started on IV Roceph in and Zithromax. Lactobacillus was added. She had clinical improvement with WBC normalizing to 8.3 on March 30 and lessening of left shift. She remained afebrile and was clinically stable for discharge home on March 31. She will continue with antibiotic and probiotic for 2 additional days at discharge. Her blood pressure was low first 24 hours requiring significant IV fluid administration. Metoprolol, propranolol, and Aldactone were discontinued. Her blood pressure silviano but was still borderline low on day of discharge. She will remain off these medications at discharge and her PCP can monitor. TSH returned normal at 1.675. Iron profile showed iron 41, transferrin saturation 12%, transferrin 241, and ferritin 48. She will follow with her PCP Dr.Ellis Cho within 1 week. Room air oximetry be checked on 6 minute walk prior to discharge. - Time Spent with Patient Total time spent providing and/or coordinating discharge services: - Discharge Medications Prescriptions: Cefuroxime PO [Ceftin] 500 mg PO Q12HR #4 tablet Azithromycin [Zithromax] 250 mg PO DAILY #2 tablet Lactobacillus [Culturelle] 1 each PO BID #4 cap.sprink Home Medications: Dexlansoprazole [Dexilant] 60 mg PO DAILY 07/11/15 [History] FLUoxetine HCl [Prozac] 40 mg PO DAILY 07/11/15 [History] Gabapentin [Neurontin] 300 mg PO TID 07/11/15 [History] Levothyroxine [Synthroid] 50 mcg PO 0630 07/11/15 [History] Oxycodone HCl/Acetaminophen [Endocet 10-325 mg Tablet] 1 each PO Q6H PRN 07/11/15 [History] Sucralfate [Carafate] 1 gm PO DAILY 07/11/15 [History] metFORMIN [Glucophage] 500 mg PO DAILY 07/11/15 [History] Atorvastatin [Lipitor] 80 mg PO HS 02/10/17 [History] Clopidogrel [Plavix] 75 mg PO DAILY 02/10/17 [History] Furosemide [Lasix] 40 mg PO DAILY 02/10/17 [History] LORazepam [Ativan] 0.5 mg PO BID 02/10/17 [History] Meclizine [Antivert] 12.5 mg PO BID 03/28/18 [History] Azithromycin [Zithromax] 250 mg PO DAILY #2 tablet 03/31/18 [Rx] Cefuroxime PO [Ceftin] 500 mg PO Q12HR #4 tablet 03/31/18 [Rx] Lactobacillus [Culturelle] 1 each PO BID #4 cap.sprink 03/31/18 [Rx] Allergies/Adverse Reactions: Allergy/AdvReac Type Severity Reaction Status Date / Time Influenza Virus Vaccines Allergy Rash Verified 04/17/16 09:41 aspirin [ASA] AdvReac See Verified 04/17/16 09:19 Comments Date of admission: 03/28/18 15:16 Primary care physician: Dwayne Cho MD Consults: 03/28/18 11:16 Consult to Nurse Navigator [CONS] Routine Comment: - Constitutional Vitals: Temp Pulse Resp BP Pulse Ox 98.6 F 85 18 97/59 90 03/31/18 07:14 03/31/18 07:14 03/31/18 08:36 03/31/18 07:14 03/31/18 08:36 - Patient Status Disposition: Home, Self-Care Condition: Fair - Discharge Instructions Follow Up With: Dwayne Cho MD [Primary Care Provider] - 1 week - Diet and Activity Activity: resume usual activities as tolerated Diet: advance to your usual diet
== END 2018-03-31 13:20 | disposition home or self-care (01) | DRG 871 ==
LOC: EMEROOPIK 08:05 → INPPIK 10:39 → INTOOBSV 10:39 → INPPIK 11:34
PROVIDERS: ADMIT Internal Medicine; ATTEND Internal Medicine